=== PATIENT | female | born 1995 | race Caucasian/White ===

== ENCOUNTER 2022-12-11 02:18 | Inpatient (IN) | payer BC ==
[2022-12-11] MEDS ORDERED: Lidocaine 1% 50 ML MDV INJECT ONE (05:30)
[2022-12-11] MEDS ORDERED: Sodium Chloride 0.9% 10 ML Syringe FLUSH PRN (05:30)
[2022-12-11] MEDS ORDERED: Ondansetron 4 MG/2 ML SDV IVPUSH PRN (05:30)
[2022-12-11] MEDS ORDERED: Nalbuphine HCl 10 MG/ 1ML Amp IVPUSH PRN (05:30)
[2022-12-11 05:51] LABS: BASOPHILS PERCENT AUTO 0.2 % (0.0-1.0); EOSINOPHILS PERCENT AUTO 0.2 % (0.0-6.0); HEMATOCRIT 34.5 % (37.0-47.0); HEMOGLOBIN 12.2 gm/dl (12.0-16.0); IMMATURE GRAN ABSOLUTE AUTO 0.13 K/mm3 (0.00-0.05); IMMATURE GRAN PERCENT AUTO 0.8 % (0.0-0.4); LYMPHOCYTES ABSOLUTE AUTO 1.6 K/mm3 (1.0-4.8); LYMPHOCYTES PERCENT AUTO 9.9 % (24.0-44.0); MEAN CORPUSCULAR HEMOGLOBIN 31.4 pg (28.0-32.0); MEAN CORPUSCULAR HGB CONC 35.4 g/dl (32.0-36.0); MEAN CORPUSCULAR VOLUME 88.9 fl (83.0-99.0); MEAN PLATELET VOLUME 9.4 fl (9.4-12.3); MONOCYTES ABSOLUTE AUTO 1.1 K/mm3 (0.0-0.8); MONOCYTES PERCENT AUTO 6.6 % (0.0-8.0); NEUTROPHILS ABSOLUTE AUTO 13.2 K/mm3 (1.8-7.7); NEUTROPHILS PERCENT AUTO 82.3 % (41.0-71.0); PLATELET COUNT,PLT 251 K/mm3 (150-400); RED BLOOD CELL COUNT 3.88 M/mm3 (4.10-5.30); WHITE BLOOD CELL COUNT,WBC 16.01 K/mm3 (3.9-11.3)
[2022-12-11] MEDS ORDERED: Sodium Chloride 0.9% 10 ML Syringe FLUSH SCH (09:00)
[2022-12-11] MEDS: Lactated Ringers 1,000 ML IV SCH ×3 (10:53→20:53)
[2022-12-11] MEDS: Oxytocin/Lactated Ringers 10 UNIT/1,000 ML BAG IV SCH (10:56)
[2022-12-11] MEDS ORDERED: Oxytocin/Lactated Ringers 10 UNIT/1,000 ML BAG IV SCH ×2 (11:15)
[2022-12-11] MEDS ORDERED: diphenhydrAMINE 50 MG/ML SDV IVPUSH PRN (11:57)
[2022-12-11] MEDS ORDERED: ePHEDrine 50 MG/ML SDV IVPUSH PRN (11:57)
[2022-12-11] MEDS: Bupivacaine/fentaNYL/NS 100 ML Bag EPIDUR PRN ×2 (12:05→21:49)
[2022-12-11 20:10] LABS: A/G RATIO 0.7 (1-2); ALBUMIN 2.7 g/dl (3.4-5.0); ANION GAP 15.8 (5-15); BILIRUBIN TOTAL 0.3 mg/dL (0.2-1.0); BUN/CREATININE RATIO 6.7 (14-18); CREATININE 0.6 mg/dL (0.55-1.02); EST CRCL DRUG DOSING (CG) 136.96 mL/min; POTASSIUM,K 2.8 mEq/L (3.5-5.1); PROTEIN TOTAL,TP 6.8 g/dl (6.4-8.2)
[2022-12-11 20:22] LABS: CREATININE,URINE RAND 47.5 mg/dL (30.0-125.0); PROTEIN CREATININE RATIO,URINE 1730.5 mg/g (0-149); PROTEIN,URINE RANDOM 82.2 mg/dL (0.0-11.8)
[2022-12-11] MEDS ORDERED: Acetaminophen 325 MG Tab PO PRN (23:15)
[2022-12-11] MEDS ORDERED: VANCOmycin 2 GM/400 ML 2 GM in Premix Bag 1 BAG IV ONE (23:15)
[2022-12-12] MEDS ORDERED: ePHEDrine 50 MG/ML SDV ONE
[2022-12-12] MEDS: Oxytocin/Lactated Ringers 10 UNIT/1,000 ML BAG IV SCH (02:35)
[2022-12-12] MEDS ORDERED: Docusate Sodium 100 MG Cap PO PRN (03:54)
[2022-12-12] MEDS ORDERED: Benzocaine/Menthol 20%-0.5% Spray 78 GM Cannister TOP PRN (03:54)
[2022-12-12] MEDS ORDERED: Acetaminophen 325 MG Tab PO PRN (03:54)
[2022-12-12] MEDS ORDERED: Witch Hazel Medicated Pads 40/Jar TOP PRN (03:54)
[2022-12-12] MEDS: Ibuprofen 600 MG Tab PO PRN ×2 (05:19→21:04)
== END 2022-12-13 15:15 | disposition home or self-care (01) | DRG 560 ==
LOC: JD.OB 02:18 → OBSVTOIN 12-12 02:18 → JD.OB 12-12 02:19
PROVIDERS: ADMIT Family Medicine; ATTEND Family Medicine
PROC: 10E0XZZ Delivery of Products of Conception, External Approach (ICD-10-PCS; principal; 2022-12-12)
PROC: 0KQM0ZZ Repair Perineum Muscle, Open Approach (ICD-10-PCS; 2022-12-12)
PROC: 3E0R3BZ Introduction of Anesthetic Agent into Spinal Canal, Percutaneous Approach (ICD-10-PCS; 2022-12-12)
PROC: 00HU33Z Insertion of Infusion Device into Spinal Canal, Percutaneous Approach (ICD-10-PCS; 2022-12-12)
PROC: 10H07YZ Insertion of Other Device into Products of Conception, Via Natural or Artificial Opening (ICD-10-PCS; 2022-12-12)
DX: O14.04 Mild to moderate pre-eclampsia, complicating childbirth (principal); O41.1230 Chorioamnionitis, third trimester, not applicable or unspecified; O48.0 Post-term pregnancy; Z37.0 Single live birth; O70.1 Second degree perineal laceration during delivery; O69.81X0 Labor and delivery complicated by cord around neck, without compression, not applicable or unspecified; Z88.0 Allergy status to penicillin; Z3A.41 41 weeks gestation of pregnancy
CPT/HCPCS: 36415; 51702; 59025; 59409; 80053; 82570; 84156; 85025; 86592; 86850; 86900; 86901; A9270-GY; J1580; J2405; J2590; J3370; J3490; J7120

== ENCOUNTER 2024-06-25 15:29 | Day surgery (SDC) | payer OTHER ==
[2024-06-25] MEDS ORDERED: Sodium Chloride 0.9% 10 ML Syringe FLUSH PRN ×2 (15:39→16:36)
[2024-06-25] MEDS ORDERED: fentaNYL 100 MCG/2 ML SDV ONE (15:42)
[2024-06-25] MEDS ORDERED: Ketorolac 30 MG/ML SDV ONE ×2 (15:42→16:52)
[2024-06-25] MEDS ORDERED: Lidocaine 2% 5 ML SDV ONE (15:42)
[2024-06-25] MEDS ORDERED: Sugammadex Sodium 200 MG/2 ML VIAL IV ONE (15:42)
[2024-06-25] MEDS ORDERED: Propofol 200 MG/20 ML SDV ONE (15:42)
[2024-06-25] MEDS ORDERED: Ondansetron 4 MG/2 ML SDV ONE (15:42)
[2024-06-25] MEDS ORDERED: Dexamethasone 4 MG/ML 5 ML MDV ONE (15:42)
[2024-06-25] MEDS ORDERED: EPINEPHrine 1 MG/ML SDV ONE (15:45)
[2024-06-25] MEDS ORDERED: Bupivacaine 0.25% 30 ML SDV ONE (15:45)
[2024-06-25] MEDS ORDERED: Ropivacaine 0.5% 5 MG/ML 30 ML SDV ONE (15:45)
[2024-06-25 15:59] LABS: BASOPHILS PERCENT AUTO 0.1 % (0.0-1.0); EOSINOPHILS PERCENT AUTO 0.2 % (0.0-6.0); HEMATOCRIT 46.4 % (37.0-47.0); HEMOGLOBIN 15.7 gm/dl (12.0-16.0); IMMATURE GRAN ABSOLUTE AUTO 0.02 K/mm3 (0.00-0.05); IMMATURE GRAN PERCENT AUTO 0.2 % (0.0-0.4); LYMPHOCYTES ABSOLUTE AUTO 1.4 K/mm3 (1.0-4.8); MEAN CORPUSCULAR HEMOGLOBIN 30.4 pg (28.0-32.0); MEAN CORPUSCULAR HGB CONC 33.8 g/dl (32.0-36.0); MEAN CORPUSCULAR VOLUME 89.7 fl (83.0-99.0); MEAN PLATELET VOLUME 9.9 fl (9.4-12.3); MONOCYTES ABSOLUTE AUTO 0.4 K/mm3 (0.0-0.8); MONOCYTES PERCENT AUTO 4.3 % (0.0-8.0); NEUTROPHILS ABSOLUTE AUTO 7.3 K/mm3 (1.8-7.7); NEUTROPHILS PERCENT AUTO 80.2 % (41.0-71.0); PLATELET COUNT,PLT 334 K/mm3 (150-400); RED BLOOD CELL COUNT 5.17 M/mm3 (4.10-5.30); WHITE BLOOD CELL COUNT,WBC 9.13 K/mm3 (3.9-11.3)
[2024-06-25] MEDS: Lactated Ringers 1,000 ML IV SCH (16:15)
[2024-06-25 16:21] LABS: ANION GAP 12.6 (5-15); BUN/CREATININE RATIO 11.3 (14-18); CALCIUM 9.6 mg/dL (8.5-10.1); CREATININE 0.8 mg/dL (0.55-1.02); EST CRCL DRUG DOSING (CG) 101.81 mL/min; POTASSIUM,K 3.6 mEq/L (3.5-5.1)
[2024-06-25] MEDS ORDERED: Ondansetron 4 MG/2 ML SDV IVPUSH PRN (16:36)
[2024-06-25] MEDS ORDERED: fentaNYL 100 MCG/2 ML SDV IVPUSH PRN (16:36)
[2024-06-25] MEDS ORDERED: HYDROmorphone 0.5 MG/0.5 ML Syringe IVPUSH PRN (16:36)
[2024-06-25] MEDS ORDERED: Lactated Ringers 1,000 ML ONE (16:40)
[2024-06-25] MEDS: Metoclopramide 10 MG/2 ML SDV IVPUSH ONE (16:44)
[2024-06-25] MEDS ORDERED: Lactated Ringers 1,000 ML IV SCH (16:45)
[2024-06-25] MEDS ORDERED: ceFAZolin 2 GM Vial ONE (16:58)
[2024-06-25] MEDS ORDERED: Rocuronium 50 MG/5 ML Vial ONE (17:00)
[2024-06-25] MEDS ORDERED: dexmedeTOMIDine HCl 200 MCG/2 ML SDV ONE (17:06)
[2024-06-25] MEDS: EPINEPHrine 1 MG/ML SDV ONE (17:24)
[2024-06-25] MEDS: Bupivacaine 0.5% 30 ML SDV ONE (17:24)
[2024-06-25] MEDS ORDERED: Sodium Chloride 0.9% 10 ML Syringe FLUSH SCH (21:00)
== END 2024-06-25 19:33 | disposition home or self-care (01) ==
LOC: JD.ED 15:29 → JD.SDS 15:49
PROVIDERS: ATTEND Obstetrics & Gynecology
DX: O00.90 Unspecified ectopic pregnancy without intrauterine pregnancy (principal); N83.11 Corpus luteum cyst of right ovary
CPT/HCPCS: 36415; 58120; 58662; 80048; 85025; 86850; 86900; 86901; J0171; J0665; J0690; J1100; J1885; J2003; J2405; J2704; J2765; J2795; J3010; J7120; 00840; 64488; 99140; J3490